=== PATIENT | female | born 1980 | race Caucasian/White ===

== ENCOUNTER 2023-11-17 10:18 | Outpatient (AMB) | payer MEDICAID, SELFPAY ==
--- NOTE | 2023-11-17 10:53 | MHC.OFFVIS ---
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 Patient reports that she has had ongoing left knee pain for 4 months now, he pain comes and goes. Pain worsens with increased activities. She has occasional swelling, pinching and has some limping when she walks. 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 She has radiographs from an outside institution which were read as normal. She describes left anterior knee pain for approximately 3-4 months. It is painful when she goes up and down stairs and she has had some swelling in her knee. This was similar to our right knee he has been over the last several years. She has some ongoing lower back pain. She states she recently had an injection which caused cramping down the posterior aspect of her both her legs and shows she is having difficulty walking normally at this time. [facility] Surgical History (Updated 11/17/23 @ 11:07 by Scarlet Dennis CMA) History of hand surgery Physical Exam Vital Signs: BMI result Body Mass Index 21.0 Extrem Other: Full range of motion bilateral knees. She has patellar lateral tilting with tenderness to palpation under the medial patellar facet with trace effusion. Assessment & Plan Assessment & Plan (1) Patellofemoral joint pain: Code(s): M25.569 - Pain in unspecified knee Category: Medical Plan: This is a 40-year-old woman with a long history of patellofemoral pain. This may be secondary to chondromalacia but the report from the x-rays is normal. On exam she certainly has tenderness under the medial patellar facet and has difficulty with stair [place]. I discussed treatment options including injections and bracing and physical therapy and NSAIDs. She has taken NSAIDs and does not want injections at the moment. She should continue, in my opinion, to resolve her back issues so that she can walk normally were least more normally, and follow up in 6 weeks to discuss injections should she so desire. Coding Level of Care Code New Pt Level 3 (68772) Diagnoses Patellofemoral joint pain M25.139
[2023-11-17 11:01] VITALS: BMI 21.0
== END 2023-11-17 11:52 | disposition home or self-care (01) ==
PROVIDERS: PCP Nurse Practitioner; Visit Provider Orthopaedic Surgery
DX: M25.562 Pain in left knee (principal)
CPT/HCPCS: 99203

== ENCOUNTER → 2023-11-17 10:18 | Outpatient (BNVA) | payer MEDICAID, SELFPAY | PROVIDERS: PCP Nurse Practitioner; Visit Provider Orthopaedic Surgery | DX: M25.562 Pain in left knee (principal) | CPT/HCPCS: 99202 ==